=== PATIENT | female | born 1955 | race Caucasian/White ===

== ENCOUNTER 2020-05-14 18:53 | Inpatient (IN) | payer OTHER, BC ==
[~2020-05-14] VITALS: Ht 154.9 cm; Wt 64.6 kg
--- NOTE | ~2020-05-14 | HC ---
[facility] [place] [address] CONSULTATION Name: LEONIE GAMEZ Room #: 213-P ADM IN M.R.#: [id number] Admission: 05/14/20 Attend Phys: Gabriella Stovall MD Discharge: Date of : 53 Report #: [id number] THIS REPORT FOR: cc: Lelo Coppola MD,Lelo Bernal,Rogelio James MD ~ DATE OF SERVICE: 05/15/2020 HISTORY OF PRESENT ILLNESS: A 65-year-old female patient who was evaluated by me for headache. This patient is a very poor historian. She is very hard of hearing. She says the headache is generalized. It started spontaneously without any trauma. Headache is pretty severe. The best I can tell, she does not have any headache prior to this. Headache is not getting any better. She does have renal transplant and she is on peritoneal dialysis. REVIEW OF SYSTEMS: Pretty extensive in this patient. The biggest problem she has is of chronic renal patient on peritoneal dialysis. She does have a history of hypertension. She does have a history of coronary artery disease as well as urinary tract infection. She has anemia. She has a history of renal transplant. This is the 14-point review of systems I can gather from the record. PAST MEDICAL HISTORY: Positive for renal failure. FAMILY HISTORY: Unavailable, but I will try to reach the family. SOCIAL HISTORY: Similarly, unavailable except record says that she is not a smoker and she does not drink any alcohol. PHYSICAL EXAMINATION: Very difficult because of hearing difficulty. I cannot tell what the memory is or fund of knowledge is, but her speech is intact. When she talks, she talks clearly. Cranial nerve examination 2-12 does not appear to be showing any marked abnormality. I cannot tell about weakness on one side or another or the sensory examination. It looks like she can move both sides, but quantification of the strength is not possible. She is complaining of headache and she is very hard of hearing. Cardiac and respiratory examination is unremarkable. Her blood pressure is running about 106/56, pulse is 77, temperature is 99.9. IMPRESSION: Very difficult to form in this patient because of the poor history. I will try to talk to the family, but I talked to the nurses. I told them to make her MRI stat and make sure it is noncontrast. She also needs an MRA. If MRI is negative, this patient may need a spinal tap. This is because this patient has renal failure that will make it more likely, although that will [address] [address] CONSULTATION Name: LEONIE GAMEZ Room #: [facility] IN M.R.#: [id number] Admission: 05/14/20 Attend Phys: Gabriella Stovall MD Discharge: Date of : 53 Report #: [id number] predispose her for opportunistic infection and we need to do that. I will also order an MRV at the same time to make sure she does not have any intracranial sinus thrombosis. This patient needs further workup before she can be dismissed. Thank you very much for this referral. By: [id number] Rogelio Bernal MD /nt
[~2020-05-14 18:53] MED LIST: ADVAIR HFA 230M12 GM INH; ALLOPURINOL 10100 M1 PO; ASPIRIN EC81 M1 PO; BACTRIM DS TAB1 EACH PO; CALCITRIOL0.5 MCG; CARVEDILOL6.25 MG; ESTRACE0.5 MG; FISH OIL 1,0001 EAC5; FISH OIL 1,0001 EAC5 PO; FLAGYL500 MG PO; KEFLEX500 MG PO; LASIX 40 MG TAB40 M2 PO; LEVAQUIN 500 M500 M2 PO; LIPITOR40 MG; LISINOPRIL5 MG; MYFORTIC180 MG PO; MYFORTIC360 MG PO; NEXIUM40 MG PO; NORCO 5-325 TA1 EACH PO; NORVASC5 MG PO; OMEPRAZOLE 20 M20 MG; OMEPRAZOLE 20 M20 MG PO; ONDANSETRON HCL4 M2 PO; PRAVACHOL20 MG PO; PREDNISONE 5 MG5 M1 PO; PROGRAF 1 MG1 MG PO; PROGRAF0.5 MG PO; SENNA S TABLET1 EACH PO; TRAMADOL 50 MG50 MG PO
[2020-05-14 20:41] VITALS: BP 128/63
[2020-05-15 00:07] VITALS: BP 117/53
[2020-05-15 04:34] LABS: HEMATOCRIT 22.5 % (37.0-47.0); HEMOGLOBIN 7.4 gm/dL (12.0-15.0); MCH 29.8 pg (26.0-34.0); MCV 90.6 fL (80.0-100.0); RBC 2.49 mil/uL (4.20-5.00); RDW 13.2 % (10.5-14.5); WBC 5.1 thou/uL (4.0-11.0)
[2020-05-15 04:50] LABS: CALCIUM 8.6 mg/dL (8.5-10.1); CREATININE 9.1 mg/dL (0.6-1.0); MAGNESIUM 1.9 mg/dL (1.8-2.4); POTASSIUM 3.2 mmol/L (3.5-5.1)
[2020-05-15 05:14] LABS: CHOLESTEROL 255 mg/dL (<200); HDL CHOLESTEROL 39 mg/dL (>40); LDL CHOLESTEROL 178 mg/dL (<100); TC:HDL 6.5 Ratio (Not establshd); TRIGLYCERIDE 192 mg/dL (<150); VLDL 38 mg/dL (<40)
[2020-05-15 05:30] VITALS: BP 118/67
--- NOTE | 2020-05-15 06:54 | NUR ---
ASSUME CARE 2030 FROM EMS. PT APPEARS STABLE WITH NO DISTRESS NOTED. DENIES ANY PAIN. TOLERATES ACTIVITY WELL. NO RESIDUAL WEAKNESS NOTED AND PT STALLINGS INDEPENDENTLY. NIH IS 0. SR ON MONITOR. PERITONEAL DIALYSIS SHUNT NOTED RLQ AND PT DOES DIALYSIS 4 TIMES A DAY. ASSESSMENT CHARTED. PLAN IS FOR NEUROLOGY AND RENAL TO SEE PT AND WILL FOLLOW ON POC PER SPECIALIST DOCTORS. WILL CONTINUE TO MONITOR
[2020-05-15 07:17] VITALS: BP 106/56
[2020-05-15 11:06] VITALS: BP 125/74
[2020-05-15 12:01] LABS: BASOPHILS 0.6 % (0.0-2.0); EOSINOPHILS 0.9 % (0.0-3.0); HEMATOCRIT 22.9 % (37.0-47.0); HEMOGLOBIN 7.4 gm/dL (12.0-15.0); LYMPHOCYTES 13.5 % (24.0-44.0); MCH 29.5 pg (26.0-34.0); MCHC 32.4 g/dL (28.0-37.0); MCV 90.9 fL (80.0-100.0); MONOCYTES 6.8 % (1.0-8.0); PLATELET COUNT 274 thou/uL (150-400); POLYS 78.2 % (36.0-66.0); RBC 2.52 mil/uL (4.20-5.00); RDW 13.5 % (10.5-14.5); WBC 7.7 thou/uL (4.0-11.0)
[2020-05-15 14:24] LABS: BF NUCLEATED CELLS 33 /mm3; BF RBC 2491 /mm3
[2020-05-15 14:25] LABS: CLARITY CLEAR; COLOR STRAW
[2020-05-15 15:24] LABS: SOURCE PD FLUID; TOTAL VOLUME 135 mL
[2020-05-15 15:31] LABS: BF MACROPHAGE 24 %; BF NEUTROPHILS 5 %
[2020-05-15 16:34] LABS: URINE BILIRUBIN NEGATIVE (Negative); URINE BLOOD TRACE (Negative); URINE CLARITY CLEAR; URINE COLOR YELLOW; URINE GLUCOSE-RANDOM* NEGATIVE (Negative); URINE KETONES NEGATIVE (Negative); URINE LEUKOCYTES-REFLEX NEGATIVE (Negative); URINE NITRITE-REFLEX NEGATIVE (Negative); URINE PROTEIN (DIPSTICK) 1+ (Negative); URINE UROBILINOGEN 0.2 E.U./dl (0.2-1.0)
[2020-05-15 16:49] LABS: SQUAMOUS >10 Many /LPF (0-3)
[2020-05-15 16:50] LABS: BACTERIA-REFLEX None Seen /HPF (None Seen); CASTS None Seen /LPF (None Seen); CRYSTALS None Seen /LPF (None Seen); URINE RBC 0-2 Rare /HPF (0-2); URINE WBC-REFLEX 0-5 Rare /HPF (0-5)
[2020-05-15 18:28] VITALS: BP 125/74
--- NOTE | 2020-05-15 18:39 | NUR ---
ASSUMED CARE OF PT AT SHIFT CHANGE. ASSESSMENTS CHARTED. MEDS GIVEN PER SEP. PT A&OX4, NO C/O DISTRESS OR WEAKNESS. PT RATED HEADACHE PAIN 7-9/10. TREATED WITH TYLENOL WITH LITTLE RELIEF. FENTYNL AND ATIVAN GIVEN ONETIME PRIOR TO MRI SO PT COULD TOLERATE MRI. CURRENLTY UNDERGOING PERITONEAL DIALYSIS. WILL CONTINUE TO MONITOR AND FOLLOW POC.
[2020-05-15 20:47] VITALS: BP 108/46
[2020-05-16 00:21] VITALS: BP 108/40
[2020-05-16 05:17] LABS: ABSOLUTE NEUTROPHILS 3.4 thou/uL (1.4-8.2); BASOPHILS 0.9 % (0.0-2.0); EOSINOPHILS 2.9 % (0.0-3.0); HEMATOCRIT 22.5 % (37.0-47.0); HEMOGLOBIN 7.3 gm/dL (12.0-15.0); LYMPHOCYTES 23.8 % (24.0-44.0); MCH 30.1 pg (26.0-34.0); MCHC 32.6 g/dL (28.0-37.0); MCV 92.2 fL (80.0-100.0); MONOCYTES 10.5 % (1.0-8.0); PLATELET COUNT 257 thou/uL (150-400); POLYS 61.9 % (36.0-66.0); RBC 2.44 mil/uL (4.20-5.00); RDW 13.3 % (10.5-14.5); WBC 5.5 thou/uL (4.0-11.0)
[2020-05-16 05:47] VITALS: BP 111/50
[2020-05-16 06:15] LABS: APTT 30.2 Seconds (24.5-32.8); INR 1.1; PROTIME 11.1 Seconds (9.3-11.4)
[2020-05-16 06:23] LABS: ALBUMIN 2.8 g/dL (3.4-5.0); CALCIUM 8.8 mg/dL (8.5-10.1); CREATININE 9.3 mg/dL (0.6-1.0); PHOSPHORUS 5.2 mg/dL (2.5-4.9); POTASSIUM 3.7 mmol/L (3.5-5.1); TOTAL BILIRUBIN 0.3 mg/dL (0.2-1.0); TOTAL PROTEIN 5.7 g/dL (6.4-8.2)
--- NOTE | 2020-05-16 08:21 | NUR ---
ASSUME CARE 1900. PT/VITALS STABLE. CONSISTENT HEADACHES NOTED. GOOD TOLERANCE TO ACTIVITY. NO DISTRESS NOTED. ADEQUATE REST THROUGH THE NIGHT. SR ON MONITOR. PERITONEAL DIALYSIS THROUGH THE NIGHT/TOLERATED WELL. ASSESSMENT CHARTED. PROGRESSING WELL WITH POC. PLAN IS TO WAIT FOR CULTURE ON PERITONEAL FLUID AND CONTINUE WITH ABX THERAPY. WILL CONTINUE TO MONITOR AND FOLLOW [facility] POC
--- NOTE | 2020-05-16 08:36 | HC ---
[facility] [place] [address] CONSULTATION Name: LEONIE GAMEZ Room #: 213-P ADM IN M.R.#: [id number] Admission: 05/14/20 Attend Phys: Gabriella Stovall MD Discharge: Date of : 53 Report #: [id number] THIS REPORT FOR: cc: Lelo Coppola MD, Cassandra MD Al-Absi,Jacoby Gillette MD ~ REASON FOR CONSULTATION: End-stage renal disease. REASON FOR PRESENTATION: Transferred from another facility for headache. HISTORY OF PRESENT ILLNESS: This is a very well-known patient to me. She is a 65-year-old with history of end-stage renal disease, maintained on peritoneal dialysis. She is also known to have extensive past medical history including and not limited to previous TIAs, coronary artery disease. She is on chronic ambulatory peritoneal dialysis. She presented to [facility] yesterday reporting that she has been having headache and some left hand numbness and weakness, and was admitted for further evaluation and management. She feels much better this morning. She denies any further headache. She has failed kidney transplant, who was started on peritoneal dialysis in the last couple of weeks. I was consulted to manage her peritoneal dialysis while inpatient. PAST MEDICAL HISTORY: 1. End-stage renal disease, maintained on hemo and peritoneal dialysis. 2. Coronary artery disease. 3. Hypertension. 4. TIA. 5. Failed kidney transplant. PAST SURGICAL HISTORY: 1. Kidney transplant. 2. Appendectomy. 3. . SOCIAL HISTORY: Lives with her family. No drug or alcohol abuse. FAMILY HISTORY: Her father had diabetes and pancreatic cancer. One of her brothers had laryngeal cancer. MEDICATIONS: 1. Aspirin. 2. Pravastatin. 3. Tacrolimus. 4. Prednisone. 5. Amlodipine. 6. Mycophenolate. [facility] [address] [place] [address] CONSULTATION Name: LEONIE GAMEZ Room #: 213-P [facility] IN [facility]#: [id number] Admission: 05/14/20 Attend Phys: Gabriella Stovall MD Discharge: Date of : 53 Report #: [id number] REVIEW OF SYSTEMS: GENERAL: No fever or chills. CARDIOVASCULAR: No chest pain or palpitation. PULMONARY: No cough or hemoptysis. GASTROINTESTINAL: No nausea or vomiting. GENITOURINARY: No frequency, no urgency. NEUROLOGICAL: As per the history of present illness. PHYSICAL EXAMINATION: GENERAL: Temperature is 37.7, blood pressure 106/56. HEAD AND NECK: No jugular venous distention, no bruit, no thyromegaly. Hard of hearing. CHEST: No crackles. CARDIOVASCULAR: No rub. ABDOMEN: Soft with a peritoneal dialysis catheter in place. EXTREMITIES: Lower extremities, no edema. LABORATORY DATA: Hemoglobin is 7.4. Sodium is 138, potassium is 3.2, BUN is 27, creatinine is 9.1. ASSESSMENT, IMPRESSION AND PLAN: 1. End-stage renal disease. Resume the patient's usual peritoneal dialysis. 2. Transient ischemic attack, workup had been initiated by the admitting team. She is more back to her baseline and she feels much better and she is okay to discharge from my point of view, if the Neurology workup is negative. <ELECTRONICALLY SIGNED> By: Jacoby Thompson MD 05/16/20 [id number] Jacoby Thompson MD /nt
--- NOTE | 2020-05-16 09:29 | 2DMMODE ---
[facility] [place] [address] 2 D/M-MODE ECHOCARDIOGRAM Name: LEONIE GAMEZ Room #: 213-P ADM IN M.R.#: [id number] Admission: 05/14/20 Attend Phys: Gabriella Stovall MD Discharge: Date of : 53 Report #: [id number] THIS REPORT FOR: cc: Lelo Coppola MD, Cassandra MD Lundgren,Giovanni Narvaez MD [facility] ~ APPROVED REPORT Study performed: 05/16/2020 08:24:54 EXAM: Comprehensive 2D, Doppler, and color-flow Echocardiogram Patient Location: Bedside Room #: 213 Status: routine BSA: 1.61 HR: 72 bpm BP: 111/50 mmHg Rhythm: NSR Other Information Study Quality: Good Indications TIA. Hx: CAD, stents, ESRD, prior TIA. Echo Enhancing Agent Indication: Rule out Shunt Agent(s) / Amount(s) Used: Agitated Saline 7 cc 2D Dimensions RVDd: 34.05 mm IVSd: 9.84 (7-11mm) LVOT Diam: 19.55 (18-24mm) LVDd: 48.01 mm PWd: 9.27 (7-11mm) Ascending Ao: 30.78 (22-36mm) LVDs: 37.84 (25-40mm) Aortic Root: 32.46 mm Volumes Left Atrial Volume (Systole) Single Plane 4CH: 52.01 mL Single Plane 2CH: 50.85 mL LA ESV Index: 38.00 mL/m2 Aortic Valve AoV Peak Uri.: 1.79 m/s [facility] [address] [place] [address] 2 D/M-MODE ECHOCARDIOGRAM Name: LEONIE GAMEZ Room #: 213-P [facility] IN ..#: [id number] Admission: 05/14/20 Attend Phys: Gabriella Stovall, Discharge: Date of : 53 Report #: [id number] AO Peak Gr.: 12.89 mmHg LVOT Max P.54 mmHg LVOT Max V: 1.54 m/s RONAK Vmax: 2.58 cm2 Mitral Valve E/A Ratio: 0.8 MV Decel. Time: 212.94 ms MV E Max Uri.: 1.02 m/s MV A Uri.: 1.23 m/s MV PHT: 61.75 ms IVRT: 101.50 ms Pulmonary Valve PV Peak Uri.: 1.41 m/s PV Peak Gr.: 7.90 mmHg Pulmonary Vein P Vein S: 0.75 m/s P Vein A: 0.23 m/s P Vein D: 0.48 m/s P Vein A Dur.: 143.0 msec P Vein S/D Ratio: 1.56 Tricuspid Valve TR Peak Uri.: 2.71 m/s RAP Estimate: 5.00 mmHg TR Peak Gr.: 29.48 mmHg PA Pressure: 34.00 mmHg Left Ventricle The left ventricle is normal size. There is normal LV segmental wall motion. There is normal left ventricular wall thickness. The left ventricular systolic function is normal. LVEF 55%. Mild diastolic dysfunction is present (impaired relaxation pattern). Right Ventricle The right ventricle is normal size. The right ventricular systolic function is normal. Atria Left atrium is mildly dilated. No shunting noted with contrast bubble injection. The right atrium size is normal. Aortic Valve The aortic valve is normal in structure. No aortic regurgitation is present. There is no aortic valvular stenosis. Mitral Valve The mitral valve is normal in structure. Mild mitral regurgitation. No evidence of mitral valve stenosis. [facility] [address] [place] [address] 2 D/M-MODE ECHOCARDIOGRAM Name: LEONIE GAMEZ Room #: 213-P [facility] IN .R.#: [id number] Admission: 05/14/20 Attend Phys: Gabriella Stovall, Discharge: Date of : 53 Report #: [id number] Tricuspid Valve The tricuspid valve is normal in structure. Mild tricuspid regurgitation. Estimated PAP 35mmHg. Pulmonic Valve The pulmonary valve is normal in structure. Trace pulmonic regurgitation. Great Vessels The aortic root is normal in size. The ascending aorta is normal in size. IVC is normal in size and collapses >50% with inspiration. Pericardium There is no pericardial effusion. <Conclusion> The left ventricular systolic function is normal. There is normal LV segmental wall motion. LVEF 55%. Mild diastolic dysfunction No shunting noted with contrast bubble injection. The aortic valve is normal in structure. No aortic regurgitation or stenosis. The mitral valve is normal in structure. Mild mitral regurgitation. Mild tricuspid regurgitation. Estimated pulmonary artery pressure of 35mmHg. There is no pericardial effusion. <ELECTRONICALLY SIGNED> By: Giovanni Morales MD, [facility] 05/16/20927 7 7 Giovanni Morales MD, FACC /INF
--- NOTE | 2020-05-16 11:20 | NUR ---
AAOX4. COOPERATIVE, CALM, WORKING WITH ST, PT, AND OT. BUN 29, CR 9.3 NOTED; DIALYSIS TODAY. SR PER TELE. FALL PRECAUTIONS IN PLACE. WILL CONTINUE TO FOLLOW.
[2020-05-16 12:02] VITALS: BP 93/46
--- NOTE | 2020-05-16 15:46 | NUR ---
5N CONSULT RECEIVED FOR Pt. Pt SEEN BY ARMIDA JEAN BAPTISTE NP. ACUTE OT SERVICES DISCHARGED Pt. PLAN IS TO RETURN HOME AT D/C. THANK YOU FOR THIS REFERRAL.
[2020-05-16 16:30] VITALS: BP 106/54
--- NOTE | 2020-05-16 18:31 | NUR ---
met with patient who admits with possible TIA. Patient reports feels better and believes possible sinus infection. She reports feeling better. Patient lives in independent home with son and dtr in law. She does pertineal dialysis at home and with [facility]. She reports she does during the day but in process learning at night. PCP Dr Baldwin. Discussed HH at [facility] and patient does not believe she needs plans home independently. No hx of DME [facility] following.
[2020-05-16 20:12] VITALS: BP 125/61
[2020-05-17 03:06] LABS: GLYCOHEMOGLOBIN (HGB A1C) 5.4 % (4.8-5.6)
[2020-05-17 05:51] VITALS: BP 121/57
[2020-05-17 08:00] VITALS: BP 114/66
[2020-05-17 08:51] LABS: HEMATOCRIT 24.5 % (37.0-47.0); HEMOGLOBIN 7.8 gm/dL (12.0-15.0); MCH 29.2 pg (26.0-34.0); MCHC 31.8 g/dL (28.0-37.0); MCV 91.7 fL (80.0-100.0); RBC 2.67 mil/uL (4.20-5.00); RDW 13.4 % (10.5-14.5); WBC 5.2 thou/uL (4.0-11.0)
[2020-05-17 09:05] LABS: CALCIUM 9.2 mg/dL (8.5-10.1); CREATININE 9.1 mg/dL (0.6-1.0); POTASSIUM 3.9 mmol/L (3.5-5.1)
[2020-05-17 11:30] VITALS: BP 109/61
[2020-05-17] MEDS ORDERED: METRONIDAZOLE500 M4 PO (12:30)
[2020-05-17] MEDS ORDERED: PROTONIX 20 MG20 M1 PO (12:30)
[2020-05-17] MEDS ORDERED: BACTRIM DS TAB1 EAC1 PO (12:30)
[2020-05-17] MEDS ORDERED: ACETAMINOPHEN325 M1 PO (12:30)
[2020-05-17] MEDS ORDERED: FLUCONAZOLE 10100 MG PO (12:30)
[2020-05-17 14:11] VITALS: BP 109/61
--- NOTE | 2020-05-17 14:46 | NUR ---
ON-GOING ASSESSMENT: CM REVIEWED CHART. PT HAS ORDERS TO DISCHARGE HOME TODAY WITH HH. CM DISCUSSED THIS WITH PATIENT. PT DOES NOT FEEL SHE NEEDS HOME HEALTH AND STATES SHE CAN SET UP HER OWN MEDICATIONS AND CAN DO HER LAUNDRY AND DOES NOT FEEL SHE NEEDS THE THERAPY AND IS MOVING AROUND OK. PT DECLINING HH. CM NOTIFIED ATTENDING. PT WILL DISCHARGE HOME TODAY (PT LIVES WITH SON AND DAUGHTER IN LAW).
== END 2020-05-17 14:54 | disposition home health service (06) | DRG 698 ==
LOC: 2N 18:53
PROVIDERS: Hospitalist; Internal Medicine; Nurse Practitioner Family; Psychiatry & Neurology Neuromuscular Medicine; ADMIT Internal Medicine; ATTEND Internal Medicine
PROC: 3E1M39Z Irrigation of Peritoneal Cavity using Dialysate, Percutaneous Approach (ICD-10-PCS; principal; 2020-05-15)
PROC: 3E1M39Z Irrigation of Peritoneal Cavity using Dialysate, Percutaneous Approach (ICD-10-PCS; 2020-05-17)
DX: T86.12 Kidney transplant failure (principal); N18.6 End stage renal disease; G45.9 Transient cerebral ischemic attack, unspecified; Z94.0 Kidney transplant status; R51.9 Headache, unspecified; J45.909 Unspecified asthma, uncomplicated; D63.8 Anemia in other chronic diseases classified elsewhere; I25.10 Atherosclerotic heart disease of native coronary artery without angina pectoris; Z20.828 Contact with and (suspected) exposure to other viral communicable diseases; I10 Essential (primary) hypertension; Z90.89 Acquired absence of other organs; Z83.3 Family history of diabetes mellitus; Z80.8 Family history of malignant neoplasm of other organs or systems; Z95.5 Presence of coronary angioplasty implant and graft; Z88.1 Allergy status to other antibiotic agents; Z99.2 Dependence on renal dialysis; Z88.0 Allergy status to penicillin; Z88.8 Allergy status to other drugs, medicaments and biological substances; Y92.89 Other specified places as the place of occurrence of the external cause; Z79.899 Other long term (current) drug therapy
CPT/HCPCS: 10081; 33000